=== PATIENT | female | born 1990 ===

== ENCOUNTER → 2020-12-01 | Outpatient (CLI) | payer SELFPAY ==
[~2020-12-01] MED LIST: FERSU300 PO
== END | disposition home or self-care (01) ==
LOC: LAB SHORT 16:14 → LAB EV 16:14
DX: N39.0 Urinary tract infection, site not specified (principal)
CPT/HCPCS: 87077; 87086; 87186

== ENCOUNTER 2021-02-06 14:23 | Emergency (ER) | payer SELFPAY ==
[~2021-02-06] VITALS: Ht 167.6 cm; Wt 65.8 kg
[2021-02-06 15:00] LABS: BASOPHILS ABSOLUTE AUTO 0.05 K/mm3 (0.00-0.23); BASOPHILS PERCENT AUTO 0 % (0-2); EOSINOPHILS ABSOLUTE AUTO 0.11 K/mm3 (0.00-0.68); EOSINOPHILS PERCENT AUTO 1 % (0-6); Hematocrit 37.2 % (33.0-51.0); Hemoglobin 12.5 g/dL (11.5-16.0); IMMATURE GRAN ABSOLUTE AUTO 0.05 K/mm3 (0.00-0.10); IMMATURE GRAN PERCENT AUTO 0 % (0-1); LYMPHOCYTES ABSOLUTE AUTO 1.07 K/mm3 (0.84-5.20); LYMPHOCYTES PERCENT AUTO 7 % (21-46); MONOCYTES ABSOLUTE AUTO 0.76 K/mm3 (0.16-1.47); MONOCYTES PERCENT AUTO 5 % (4-13); Mean Corpuscular HGB 28.3 pg (26.0-34.0); Mean Corpuscular HGB Conc 33.6 g/dL (31.5-36.5); Mean Corpuscular Volume 84 fL (80-100); Mean Platelet Volume 9.8 fL (9.1-12.4); NEUTROPHILS ABSOLUTE AUTO 12.51 K/mm3 (1.96-9.15); NEUTROPHILS PERCENT AUTO 86 % (41-73); Platelet Count 327 K/mm3 (150-400); RDW Coefficient Variation 13.8 % (11.7-14.2); RDW Standard Deviation 42.5 fL (35.1-46.3); Red Blood Cell Count 4.42 M/mm3 (3.80-5.20); White Blood Cell Count 14.55 K/mm3 (4.00-11.30)
[2021-02-06 15:17] LABS: Alanine Aminotransfer (ALT/SGP 96 U/L (12-78); Alk Phos 85 U/L (50-136); Anion Gap 4 mmol/L (6-16); Aspartate Aminotrans (AST/SGOT 169 U/L (12-37); Bilirubin, Total 0.3 mg/dL (0.1-1.0); Blood Urea Nitrogen 16 mg/dL (8-24); Bun/Creatinine Ratio 23.8 (12.0-20.0); CO2, Blood 27 mmol/L (21-32); Calcium, Blood 8.8 mg/dL (8.5-10.1); Chloride, Blood 105 mmol/L (98-108); Creatinine, Blood 0.67 mg/dL (0.40-1.00); Glomerular Filtration Rate >60 (60-); Glucose, Blood 102 mg/dL (70-99); Potassium, Blood 3.5 mmol/L (3.5-5.5); Sodium, Blood 136 mmol/L (136-145)
[2021-02-06 16:37] LABS: Source, Urine Clean Catch
[2021-02-06 17:35] LABS: Appearance, Urine Hazy (Clear); Bilirubin, Urine Neg (Neg); Blood, Urine Neg (Neg); Color, Urine Yellow (P-Yellow); Glucose Qualitative, Urine Neg (Neg); Ketones, Urine Neg (Neg); Leukocyte Esterase, Urine 3+ (Neg); Nitrite, Urine Neg (Neg); Protein, Urine 1+ (Neg); Urobilinogen, Urine NORM (Normal)
[2021-02-06 18:02] LABS: Bacteria Many /hpf; Red Blood Cells, Urine 0-2 /hpf (0-2); Squamous Epithelial Cells Many /hpf (Few); White Blood Cells, Urine 25-50 /hpf (0-5)
[2021-05-16] MEDS ORDERED: FERSU300 PO (11:20)
== END 2021-02-06 20:44 | disposition home or self-care (01) ==
LOC: ER 14:23
PROVIDERS: Physician Assistant
DX: K80.70 Calculus of gallbladder and bile duct without cholecystitis without obstruction (principal)
CPT/HCPCS: 36415; 76705; 80053; 81001; 83690; 85025; 87086; 99284-25

== ENCOUNTER 2021-05-21 06:21 | Day surgery (SDC) | payer OTHER ==
[~2021-05-21] VITALS: Ht 165 cm; Wt 70.9 kg
--- NOTE | 2021-05-21 07:35 | NUR ---
Ambulatory in Day Surgery. PATIENT MALAGASY SPEAKING. FRIEND ARAMIS WITH PATIENT. PATIENT REQUESTS HIM INSURANCE RATER. PHONE SET UP AND AVAILABLE FOR [place] CONSENT BUT PT REPORTS PREFRENCE FOR USING FRIEND. History, Chart, Medications and Allergies reviewed before start of procedure.Patient confirms NPO status and agrees with scheduled surgery. Patient reports completing Chlorhexadine shower X2 prior to admission to hospital.Surgical site prepped with 2% Chlorhexidine cloth wipe.
--- NOTE | 2021-05-21 09:50 | NUR ---
RECENTLY ASSUMED CARE OF PT. PEST CONTROL SERVICE SALES AGENT ASSISTING WITH DISCHARGE PAPERWORK.
--- NOTE | 2021-05-21 10:23 | NUR ---
PT FRIEND BACK TO DAYSURGERY PER PT REQ AFTER DISCUSSING WITH ONLINE COMMUNITY MANAGER.
--- NOTE | 2021-05-21 11:24 | NUR ---
Patient up to Ambulate independently. Gait steady. Discharge instructions reviewed with pt/friend. Patient and friend verbalizes understanding. Copy given to patient to take home. Discharged via wheelchair to private car for ride home WITH FRIEND GIVING PT RIDE HOME. pt reported pain doing much better. vss.
== END 2021-05-21 11:25 | disposition home or self-care (01) ==
LOC: ORSCSDS → ORSCMMR 06:21 → ORSCSDS 06:21 → ORSCMMR 06:22 → ORSCSDS 11:25
PROVIDERS: Surgery
PROC: 0FT44ZZ Resection of Gallbladder, Percutaneous Endoscopic Approach (ICD-10-PCS; principal; 2021-05-21 07:30)
PROC: BF031ZZ Plain Radiography of Gallbladder and Bile Ducts using Low Osmolar Contrast (ICD-10-PCS; principal; 2021-05-21 07:30)
DX: K80.10 Calculus of gallbladder with chronic cholecystitis without obstruction (principal)
CPT/HCPCS: 74300; 88304; A9270; C1729; J0690; J1100; J1885; J2250; J2405; J2704; J3010; J7120